=== PATIENT | male | born 1945 | race Caucasian/White ===

== ENCOUNTER 2016-10-01 19:53 | Emergency (ER) | payer OTHER, BC ==
[~2016-10-01] VITALS: Ht 182.9 cm; Wt 108.9 kg
[2016-10-01 20:30] VITALS: BP_SYST 158
[2016-10-01] MEDS ORDERED: BACITRACIN 1 GM OINT TP ONE (20:45)
[2016-10-01] MEDS ORDERED: DIPH-TET-PERTUS Vaccine 0.5 ML VIAL (ADACEL) IM ONE (20:45)
[2016-10-01 21:27] VITALS: BP_SYST 130
== END 2016-10-01 21:27 | disposition home or self-care (01) ==
LOC: SED 19:53
DX: S81.811A Laceration without foreign body, right lower leg, initial encounter (principal); L95.8 Other vasculitis limited to the skin; I10 Essential (primary) hypertension; Z86.73 Personal history of transient ischemic attack (TIA), and cerebral infarction without residual deficits; Z91.041 Radiographic dye allergy status; Z91.048 Other nonmedicinal substance allergy status; W51.XXXA Accidental striking against or bumped into by another person, initial encounter; Y93.89 Activity, other specified; Y92.89 Other specified places as the place of occurrence of the external cause; Y99.8 Other external cause status
CPT/HCPCS: 90715; 99283

== ENCOUNTER 2023-12-03 16:43 | Inpatient (IN) | payer OTHER, BC ==
[~2023-12-03] VITALS: Ht 185.4 cm; Wt 90.7 kg
[2023-12-03 16:47] VITALS: BP_SYST 95; PULSE 115; RESP 22; TEMP 98.3; O2SAT 94
[2023-12-03 17:18] LABS: BASOPHILS # (AUTO) 0.1 K/uL (0.0-0.2); BASOPHILS % (AUTO) 0.6 % (0.0-2.0); EOSINOPHILS % (AUTO) 0.3 % (0.0-4.0); HEMATOCRIT 42.2 % (36-54); HEMOGLOBIN 14.7 g/dL (14.0-18.0); LYMPHOCYTES # (AUTO) 1.4 K/uL (1.0-5.5); LYMPHOCYTES % (AUTO) 13.2 % (20.5-51.5); MEAN CORPUSCULAR HEMOGLOBIN 35 pg (27-31); MEAN CORPUSCULAR HGB CONC 35 % (32-36); MEAN CORPUSCULAR VOLUME 101 fL (79.0-98.0); MONOCYTES # (AUTO) 1.1 K/uL (0.0-1.0); MONOCYTES % (AUTO) 10.2 % (1.7-9.3); NEUTROPHILS # (AUTO) 7.9 K/uL (1.8-7.7); NEUTROPHILS % (AUTO) 75.7 % (40.0-70.0); PLATELET COUNT (AUTO) 231 K/uL (130-430); RED CELL DISTRIBUTION WIDTH 15.8 % (9.0-15.0); WHITE BLOOD COUNT (AUTO) 10.5 K/uL (4.8-10.8)
[2023-12-03 17:39] LABS: INR 2.3 (0.80-1.20)
[2023-12-03 17:54] LABS: ALANINE AMINOTRANSFERASE 14 U/L (12-78); ALBUMIN 2.7 g/dL (3.4-4.8); ANION GAP 5 (5-15); ASPARTATE AMINOTRANSFERASE 20 U/L (10-37); BILIRUBIN,DIRECT 0.5 mg/dL (0.0-0.3); CALCIUM 8.4 mg/dL (8.4-11.0); CARBON DIOXIDE 38 mmol/L (23-29); CHLORIDE 97 mmol/L (98-107); CREATINE KINASE, TOTAL 28 U/L (39-308); CREATININE 1.73 mg/dL (0.55-1.30); GLUCOSE 127 mg/dL (74-106); SODIUM SERUM 140 mmol/L (136-145); TOTAL BILIRUBIN 1.3 mg/dL (0.0-1.0); UREA NITROGEN, BLOOD 52 mg/dL (8-21)
[2023-12-03 18:04] LABS: POTASSIUM 2.1 mmol/L (3.5-5.1)
[2023-12-03] MEDS: dilTIAZem HCL IVP 5 MG/ML VIAL IVP ONE (18:35)
[2023-12-03] MEDS: DILTIAZEM HCL 60 MG TABLET PO ONE (18:36)
[2023-12-03] MEDS ORDERED: VANCOMYCIN HCL 1000 MG/VIAL IV ONE (19:12)
[2023-12-03 19:29] LABS: BILIRUBIN,URINE NEGATIVE (NEGATIVE); CLARITY/URINE CLEAR (CLEAR); COLOR,URINE YELLOW (YELLOW); GLUCOSE,URINE NEGATIVE (NEGATIVE); KETONES,URINE NEGATIVE (NEGATIVE); LEUKOCYTE ESTERASE ,URINE NEGATIVE (NEGATIVE); NITRITE, URINE NEGATIVE (NEGATIVE); PROTEIN URINE NEGATIVE (NEGATIVE); UROBILINOGEN,URINE 0.2 (0.2-1.0)
[2023-12-03] MEDS: VANCOMYCIN HCL 1,000 MG in NS 250 ML IV ONE (19:29)
[2023-12-03 19:41] LABS: BACTERIA,URINE RARE /HPF (None Seen); BLOOD, URINE TRACE (NEGATIVE); MUCUS,URINE 1+ /LPF (None Seen); RBC,URINE 0-3 /HPF (0-3); WBC,URINE 0-3 /HPF (0-3)
[2023-12-03] MEDS: ENOXAPARIN SODIUM 80 MG/0.8 ML SYRINGE SUBCUT ONE (19:47)
[2023-12-03] MEDS ORDERED: WARF3TAB2 PO (19:52)
[2023-12-03] MEDS ORDERED: FOLI-43 PO (19:52)
[2023-12-03] MEDS ORDERED: METO25TA6 PO (19:52)
[2023-12-03] MEDS ORDERED: FAMO-268 PO (19:52)
[2023-12-03] MEDS ORDERED: PHEN100C4 PO (19:52)
[2023-12-03] MEDS ORDERED: FURO40TA5 PO (19:52)
[2023-12-03] MEDS ORDERED: ATOR10TA68 PO (19:52)
[2023-12-03] MEDS ORDERED: CHLO25TA2 PO (19:52)
[2023-12-03] MEDS: POTASSIUM CHLORIDE 20 MEQ/PKT PACKET PO ONE ×2 (20:13→20:38)
[2023-12-03 20:55] VITALS: BP_SYST 89; PULSE 106; RESP 16; TEMP 96.9
[2023-12-03 21:00] VITALS: O2SAT 97
[2023-12-03] MEDS ORDERED: NACL 0.9% 1,000 ML IV SCH (22:00)
[2023-12-03] MEDS: KCL 20 mEq in NS 1000 mL 1,000 ML IV SCH (22:27)
[2023-12-03] MEDS: PHENYTOIN 100 MG CAPSULE PO SCH (22:54)
[2023-12-03] MEDS: WARFARIN SODIUM 3 MG TABLET PO ONE (22:57)
[2023-12-03] MEDS: traMADol HCL HCL 50 MG TABLET (ULTRAM) PO PRN (23:08)
[2023-12-03] MEDS: WARFARIN SODIUM 6 MG TABLET ONE (23:14)
[2023-12-03] MEDS: KCL 20 mEq in NS 1000 mL 1,000 ML IV ONE (23:14)
[2023-12-04] VITALS (7 sets, daily range): BP systolic 91–101; PULSE 91–120; RESP 16–20; TEMP 96.5–98.6; O2SAT 96–99
[2023-12-04 07:01] LABS: BASOPHILS % (AUTO) 0.5 % (0.0-2.0); EOSINOPHILS # (AUTO) 0.1 K/uL (0.0-0.4); EOSINOPHILS % (AUTO) 1.3 % (0.0-4.0); HEMATOCRIT 40.6 % (36-54); HEMOGLOBIN 13.7 g/dL (14.0-18.0); LYMPHOCYTES # (AUTO) 1.3 K/uL (1.0-5.5); LYMPHOCYTES % (AUTO) 16.1 % (20.5-51.5); MEAN CORPUSCULAR HEMOGLOBIN 34 pg (27-31); MEAN CORPUSCULAR HGB CONC 34 % (32-36); MEAN CORPUSCULAR VOLUME 102 fL (79.0-98.0); MONOCYTES # (AUTO) 0.8 K/uL (0.0-1.0); MONOCYTES % (AUTO) 10.4 % (1.7-9.3); NEUTROPHILS # (AUTO) 5.6 K/uL (1.8-7.7); NEUTROPHILS % (AUTO) 71.7 % (40.0-70.0); PLATELET COUNT (AUTO) 206 K/uL (130-430); RED BLOOD CELL COUNT(AUTO) 3.97 MIL/uL (4.2-6.2); RED CELL DISTRIBUTION WIDTH 15.9 % (9.0-15.0); WHITE BLOOD COUNT (AUTO) 7.8 K/uL (4.8-10.8)
[2023-12-04 07:06] LABS: INR 2.4 (0.80-1.20)
[2023-12-04 07:15] LABS: ANION GAP 4 (5-15); CALCIUM 8.5 mg/dL (8.4-11.0); CARBON DIOXIDE 39 mmol/L (23-29); CHLORIDE 98 mmol/L (98-107); CREATININE 1.57 mg/dL (0.55-1.30); GLUCOSE 98 mg/dL (74-106); SODIUM SERUM 141 mmol/L (136-145); UREA NITROGEN, BLOOD 47 mg/dL (8-21)
[2023-12-04 07:48] LABS: POTASSIUM 2.6 mmol/L (3.5-5.1)
[2023-12-04 07:56] LABS: PHENYTOIN (DILANTIN) 6.6 ug/mL (10.0-20.0)
[2023-12-04] MEDS ORDERED: cefTRIAXone 1 GM VIAL IV SCH (09:00)
[2023-12-04] MEDS: FAMOTIDINE 20 MG TABLET PO SCH (09:22)
[2023-12-04] MEDS: FOLIC ACID 1 MG TABLET PO SCH (09:22)
[2023-12-04] MEDS: ATORVASTATIN 10 MG TABLET PO SCH (09:22)
[2023-12-04] MEDS: METOPROLOL TARTRATE 25 MG TABLET PO SCH (09:22)
[2023-12-04] MEDS: POTASSIUM CHLORIDE 20 MEQ TABLET.ER PO ONE ×2 (09:25→12:27)
[2023-12-04] MEDS: AZITHROMYCIN 500 MG in NS 250 ML IV SCH (10:50)
[2023-12-04] MEDS: CEFTRIAXONE SOD 1 GM/ D5W 50 ML IV SCH (13:25)
[2023-12-04] MEDS: WARFARIN SODIUM 1 MG TABLET PO SCH (18:00)
[2023-12-04] MEDS: ANTIFUNGAL CLEAR OINTMENT TP SCH (20:28)
[2023-12-04] MEDS: PHENYTOIN 100 MG CAPSULE PO ONE (20:28)
[2023-12-05] VITALS (7 sets, daily range): BP systolic 92–123; PULSE 112–128; RESP 16–20; TEMP 97.2–98.3; O2SAT 95–98
[2023-12-05 07:10] LABS: BASOPHILS % (AUTO) 0.4 % (0.0-2.0); EOSINOPHILS # (AUTO) 0.2 K/uL (0.0-0.4); EOSINOPHILS % (AUTO) 1.7 % (0.0-4.0); HEMATOCRIT 39.9 % (36-54); HEMOGLOBIN 13.4 g/dL (14.0-18.0); LYMPHOCYTES # (AUTO) 1.3 K/uL (1.0-5.5); LYMPHOCYTES % (AUTO) 14.2 % (20.5-51.5); MEAN CORPUSCULAR HEMOGLOBIN 34 pg (27-31); MEAN CORPUSCULAR HGB CONC 34 % (32-36); MEAN CORPUSCULAR VOLUME 103 fL (79.0-98.0); MONOCYTES # (AUTO) 0.8 K/uL (0.0-1.0); MONOCYTES % (AUTO) 8.4 % (1.7-9.3); NEUTROPHILS # (AUTO) 7.1 K/uL (1.8-7.7); NEUTROPHILS % (AUTO) 75.3 % (40.0-70.0); PLATELET COUNT (AUTO) 203 K/uL (130-430); RED BLOOD CELL COUNT(AUTO) 3.88 MIL/uL (4.2-6.2); RED CELL DISTRIBUTION WIDTH 15.9 % (9.0-15.0); WHITE BLOOD COUNT (AUTO) 9.4 K/uL (4.8-10.8)
[2023-12-05 07:32] LABS: INR 2.6 (0.80-1.20); PROTHROMBIN TIME 25.2 SECS (9.5-12.5)
[2023-12-05 07:49] LABS: ANION GAP 4 (5-15); CALCIUM 8.7 mg/dL (8.4-11.0); CARBON DIOXIDE 35 mmol/L (23-29); CHLORIDE 103 mmol/L (98-107); CREATININE 1.43 mg/dL (0.55-1.30); GLUCOSE 107 mg/dL (74-106); SODIUM SERUM 142 mmol/L (136-145); UREA NITROGEN, BLOOD 38 mg/dL (8-21)
[2023-12-05 08:05] LABS: PHENYTOIN (DILANTIN) 7.4 ug/mL (10.0-20.0)
[2023-12-05] MEDS: POTASSIUM CHLORIDE 20 MEQ TABLET.ER PO ONE (09:27)
[2023-12-05] MEDS: CYCLOBENZAPRINE HCL 10 MG TABLET (FLEXERIL) PO PRN (13:48)
[2023-12-05] MEDS: WARFARIN SODIUM 1 MG TABLET PO SCH (18:04)
[2023-12-05] MEDS: PHENYTOIN 100 MG CAPSULE PO SCH (20:53)
[2023-12-06] VITALS (8 sets, daily range): BP systolic 91–110; PULSE 94–134; RESP 18; TEMP 97.4–98.8; O2SAT 95–99
[2023-12-06 05:52] LABS: ALANINE AMINOTRANSFERASE 14 U/L (12-78); ALBUMIN 2.3 g/dL (3.4-4.8); ANION GAP 2 (5-15); ASPARTATE AMINOTRANSFERASE 24 U/L (10-37); CALCIUM 8.7 mg/dL (8.4-11.0); CARBON DIOXIDE 36 mmol/L (23-29); CHLORIDE 104 mmol/L (98-107); CREATININE 1.21 mg/dL (0.55-1.30); GLUCOSE 109 mg/dL (74-106); POTASSIUM 3.4 mmol/L (3.5-5.1); SODIUM SERUM 142 mmol/L (136-145); THYROID STIMULATING HORMONE 1.48 uIu/mL (0.36-3.74); TOTAL PROTEIN, SERUM 6.6 g/dL (6.4-8.3); UREA NITROGEN, BLOOD 32 mg/dL (8-21)
[2023-12-06 06:55] LABS: INR 2.4 (0.80-1.20); PROTHROMBIN TIME 23.8 SECS (9.5-12.5)
[2023-12-06] MEDS: FUROSEMIDE 40 MG TABLET PO SCH (09:21)
[2023-12-06] MEDS ORDERED: MILK OF MAGNESIA 30 ML UDC PO PRN (14:00)
[2023-12-06] MEDS: levalbuterol HCL 0.63 MG/3 ML VIAL.NEB INH SCH (15:05)
[2023-12-06 20:02] LABS: CHOLESTEROL 126 mg/dL (<200); TRIGLYCERIDES 52 mg/dL (30-150)
[2023-12-06 20:03] LABS: HDL CHOLESTEROL 67 mg/dL (>45)
[2023-12-06] MEDS: DOCUSATE SODIUM 100 MG CAPSULE PO SCH (21:00)
[2023-12-07] VITALS (11 sets, daily range): BP systolic 92–101; PULSE 111–132; RESP 16–22; TEMP 96.7–97.9; O2SAT 93–97
[2023-12-07 06:30] LABS: BASOPHILS # (AUTO) 0.1 K/uL (0.0-0.2); BASOPHILS % (AUTO) 0.6 % (0.0-2.0); EOSINOPHILS # (AUTO) 0.3 K/uL (0.0-0.4); EOSINOPHILS % (AUTO) 3.4 % (0.0-4.0); HEMATOCRIT 38.2 % (36-54); MEAN CORPUSCULAR HEMOGLOBIN 35 pg (27-31); MEAN CORPUSCULAR HGB CONC 34 % (32-36); MEAN CORPUSCULAR VOLUME 103 fL (79.0-98.0); MONOCYTES # (AUTO) 0.8 K/uL (0.0-1.0); MONOCYTES % (AUTO) 10.1 % (1.7-9.3); NEUTROPHILS # (AUTO) 6.1 K/uL (1.8-7.7); NEUTROPHILS % (AUTO) 73.9 % (40.0-70.0); PLATELET COUNT (AUTO) 209 K/uL (130-430); RED BLOOD CELL COUNT(AUTO) 3.71 MIL/uL (4.2-6.2); WHITE BLOOD COUNT (AUTO) 8.3 K/uL (4.8-10.8)
[2023-12-07 06:37] LABS: INR 3.3 (0.80-1.20)
[2023-12-07 07:01] LABS: ALANINE AMINOTRANSFERASE 22 U/L (12-78); ALBUMIN 2.2 g/dL (3.4-4.8); ANION GAP 3 (5-15); ASPARTATE AMINOTRANSFERASE 34 U/L (10-37); CALCIUM 8.6 mg/dL (8.4-11.0); CARBON DIOXIDE 35 mmol/L (23-29); CHLORIDE 104 mmol/L (98-107); CREATININE 1.07 mg/dL (0.55-1.30); GLUCOSE 95 mg/dL (74-106); POTASSIUM 3.3 mmol/L (3.5-5.1); SODIUM SERUM 142 mmol/L (136-145); TOTAL BILIRUBIN 1.1 mg/dL (0.0-1.0); TOTAL PROTEIN, SERUM 6.3 g/dL (6.4-8.3); UREA NITROGEN, BLOOD 26 mg/dL (8-21)
[2023-12-07] MEDS: ACETYLCYSTEINE 20% 4 ML VIAL (RT) INH SCH (13:56)
[2023-12-07] MEDS: levalbuterol HCL 0.63 MG/3 ML VIAL.NEB INH SCH (13:57)
[2023-12-07] MEDS: POTASSIUM CHLORIDE 20 MEQ/PKT PACKET PO ONE (14:34)
[2023-12-07] MEDS: METOPROLOL SUCCINATE 50 MG TAB.SR.24H (TOPROL XL) PO ONE (14:34)
[2023-12-07] MEDS: METOPROLOL TARTRATE 50 MG TABLET PO SCH (22:20)
[2023-12-08 00:11] VITALS: BP_SYST 103; PULSE 114; RESP 20; TEMP 97.7; O2SAT 96
[2023-12-08 04:33] LABS: BASOPHILS % (AUTO) 0.5 % (0.0-2.0); EOSINOPHILS # (AUTO) 0.3 K/uL (0.0-0.4); EOSINOPHILS % (AUTO) 3.9 % (0.0-4.0); HEMATOCRIT 37.4 % (36-54); HEMOGLOBIN 12.5 g/dL (14.0-18.0); LYMPHOCYTES # (AUTO) 1.1 K/uL (1.0-5.5); LYMPHOCYTES % (AUTO) 13.5 % (20.5-51.5); MEAN CORPUSCULAR HEMOGLOBIN 35 pg (27-31); MEAN CORPUSCULAR HGB CONC 34 % (32-36); MEAN CORPUSCULAR VOLUME 104 fL (79.0-98.0); MONOCYTES # (AUTO) 0.8 K/uL (0.0-1.0); MONOCYTES % (AUTO) 9.8 % (1.7-9.3); NEUTROPHILS # (AUTO) 5.7 K/uL (1.8-7.7); NEUTROPHILS % (AUTO) 72.3 % (40.0-70.0); PLATELET COUNT (AUTO) 228 K/uL (130-430); RED BLOOD CELL COUNT(AUTO) 3.61 MIL/uL (4.2-6.2); WHITE BLOOD COUNT (AUTO) 7.9 K/uL (4.8-10.8)
[2023-12-08 04:56] LABS: INR 2.1 (0.80-1.20); PROTHROMBIN TIME 20.7 SECS (9.5-12.5)
[2023-12-08 05:03] LABS: ALANINE AMINOTRANSFERASE 33 U/L (12-78); ALBUMIN 2.1 g/dL (3.4-4.8); ANION GAP 2 (5-15); ASPARTATE AMINOTRANSFERASE 41 U/L (10-37); CALCIUM 8.5 mg/dL (8.4-11.0); CARBON DIOXIDE 37 mmol/L (23-29); CHLORIDE 103 mmol/L (98-107); CREATININE 1.17 mg/dL (0.55-1.30); GLUCOSE 103 mg/dL (74-106); PHENYTOIN (DILANTIN) 2.5 ug/mL (10.0-20.0); POTASSIUM 4.1 mmol/L (3.5-5.1); SODIUM SERUM 142 mmol/L (136-145); TOTAL BILIRUBIN 0.7 mg/dL (0.0-1.0); TOTAL PROTEIN, SERUM 6.3 g/dL (6.4-8.3); UREA NITROGEN, BLOOD 28 mg/dL (8-21)
[2023-12-08] MEDS: KCL 20 mEq in NS 1000 mL 1,000 ML IV ONE (06:13)
[2023-12-08 08:00] VITALS: BP_SYST 110; PULSE 125; O2SAT 95
[2023-12-08 12:00] VITALS: BP_SYST 87; PULSE 113
[2023-12-08 16:00] VITALS: BP_SYST 87; PULSE 110
[2023-12-08 20:00] VITALS: BP_SYST 108; PULSE 111; RESP 16; TEMP 97.8; O2SAT 97; O2SAT 98
[2023-12-08 20:31] VITALS: O2SAT 96
[2023-12-09] VITALS (8 sets, daily range): BP systolic 95–115; PULSE 71–129; RESP 14–18; TEMP 97.8–98.5; O2SAT 95–99
[2023-12-09 04:37] LABS: BASOPHILS % (AUTO) 0.6 % (0.0-2.0); EOSINOPHILS # (AUTO) 0.3 K/uL (0.0-0.4); EOSINOPHILS % (AUTO) 4.3 % (0.0-4.0); HEMATOCRIT 37.1 % (36-54); HEMOGLOBIN 12.5 g/dL (14.0-18.0); LYMPHOCYTES # (AUTO) 1.2 K/uL (1.0-5.5); LYMPHOCYTES % (AUTO) 15.6 % (20.5-51.5); MEAN CORPUSCULAR HEMOGLOBIN 35 pg (27-31); MEAN CORPUSCULAR HGB CONC 34 % (32-36); MEAN CORPUSCULAR VOLUME 104 fL (79.0-98.0); MONOCYTES # (AUTO) 0.8 K/uL (0.0-1.0); MONOCYTES % (AUTO) 10.3 % (1.7-9.3); NEUTROPHILS # (AUTO) 5.4 K/uL (1.8-7.7); NEUTROPHILS % (AUTO) 69.2 % (40.0-70.0); PLATELET COUNT (AUTO) 250 K/uL (130-430); RED BLOOD CELL COUNT(AUTO) 3.58 MIL/uL (4.2-6.2); RED CELL DISTRIBUTION WIDTH 15.8 % (9.0-15.0); WHITE BLOOD COUNT (AUTO) 7.8 K/uL (4.8-10.8)
[2023-12-09 05:37] LABS: ANION GAP 3 (5-15); CALCIUM 8.6 mg/dL (8.4-11.0); CARBON DIOXIDE 35 mmol/L (23-29); CHLORIDE 102 mmol/L (98-107); CREATININE 1.04 mg/dL (0.55-1.30); GLUCOSE 90 mg/dL (74-106); POTASSIUM 3.9 mmol/L (3.5-5.1); SODIUM SERUM 140 mmol/L (136-145); UREA NITROGEN, BLOOD 31 mg/dL (8-21)
[2023-12-09 08:10] LABS: INR 1.4 (0.80-1.20); PROTHROMBIN TIME 14.1 SECS (9.5-12.5)
[2023-12-09 08:24] LABS: PHENYTOIN (DILANTIN) 1.3 ug/mL (10.0-20.0)
[2023-12-09] MEDS: PHENYTOIN SODIUM INJ 500 MG in NS 50 ML IV ONE (13:54)
[2023-12-09] MEDS: WARFARIN SODIUM 6 MG TABLET PO SCH (17:55)
[2023-12-10] VITALS (9 sets, daily range): BP systolic 99–106; PULSE 72–118; RESP 18–20; TEMP 98.2–98.6; O2SAT 96–98
[2023-12-10 04:52] LABS: BASOPHILS # (AUTO) 0.1 K/uL (0.0-0.2); BASOPHILS % (AUTO) 0.8 % (0.0-2.0); EOSINOPHILS # (AUTO) 0.3 K/uL (0.0-0.4); EOSINOPHILS % (AUTO) 3.9 % (0.0-4.0); HEMATOCRIT 36.8 % (36-54); HEMOGLOBIN 12.4 g/dL (14.0-18.0); LYMPHOCYTES # (AUTO) 1.3 K/uL (1.0-5.5); LYMPHOCYTES % (AUTO) 16.1 % (20.5-51.5); MEAN CORPUSCULAR HEMOGLOBIN 35 pg (27-31); MEAN CORPUSCULAR HGB CONC 34 % (32-36); MEAN CORPUSCULAR VOLUME 104 fL (79.0-98.0); MONOCYTES # (AUTO) 0.8 K/uL (0.0-1.0); MONOCYTES % (AUTO) 9.9 % (1.7-9.3); NEUTROPHILS # (AUTO) 5.5 K/uL (1.8-7.7); NEUTROPHILS % (AUTO) 69.3 % (40.0-70.0); PLATELET COUNT (AUTO) 262 K/uL (130-430); RED BLOOD CELL COUNT(AUTO) 3.56 MIL/uL (4.2-6.2); RED CELL DISTRIBUTION WIDTH 16.3 % (9.0-15.0); WHITE BLOOD COUNT (AUTO) 7.9 K/uL (4.8-10.8)
[2023-12-10 05:07] LABS: INR 1.3 (0.80-1.20); PROTHROMBIN TIME 12.9 SECS (9.5-12.5)
[2023-12-10 05:58] LABS: ANION GAP 3 (5-15); CALCIUM 8.3 mg/dL (8.4-11.0); CARBON DIOXIDE 34 mmol/L (23-29); CHLORIDE 103 mmol/L (98-107); CREATININE 1.18 mg/dL (0.55-1.30); GLUCOSE 108 mg/dL (74-106); SODIUM SERUM 140 mmol/L (136-145); UREA NITROGEN, BLOOD 34 mg/dL (8-21)
[2023-12-10 10:01] LABS: INR 1.3 (0.80-1.20); PROTHROMBIN TIME 13.3 SECS (9.5-12.5)
[2023-12-10 10:55] LABS: PHENYTOIN (DILANTIN) 3.9 ug/mL (10.0-20.0)
== END 2023-12-10 21:00 | DRG 562 ==
LOC: SED 16:43 → SMU 20:22 → STU 21:56
PROVIDERS: ADMIT Family Medicine; ATTEND Family Medicine
DX: S82.891A Other fracture of right lower leg, initial encounter for closed fracture (principal); J18.9 Pneumonia, unspecified organism; I48.20 Chronic atrial fibrillation, unspecified; N17.9 Acute kidney failure, unspecified; I50.9 Heart failure, unspecified; I48.0 Paroxysmal atrial fibrillation; I11.0 Hypertensive heart disease with heart failure; G40.909 Epilepsy, unspecified, not intractable, without status epilepticus; E87.6 Hypokalemia; J45.909 Unspecified asthma, uncomplicated; M17.0 Bilateral primary osteoarthritis of knee; N28.89 Other specified disorders of kidney and ureter; E86.0 Dehydration; T50.2X5A Adverse effect of carbonic-anhydrase inhibitors, benzothiadiazides and other diuretics, initial encounter; W01.0XXA Fall on same level from slipping, tripping and stumbling without subsequent striking against object, initial encounter; Y92.89 Other specified places as the place of occurrence of the external cause; Z95.2 Presence of prosthetic heart valve; Z86.73 Personal history of transient ischemic attack (TIA), and cerebral infarction without residual deficits; Z86.16 Personal history of COVID-19; Z79.01 Long term (current) use of anticoagulants; Z87.01 Personal history of pneumonia (recurrent); Z79.899 Other long term (current) drug therapy; Z88.8 Allergy status to other drugs, medicaments and biological substances; Y93.89 Activity, other specified; Y99.8 Other external cause status
CPT/HCPCS: 36415; 71045; 71250-TC; 76770; 80048; 80053; 80061; 80076; 80185; 81000; 81001; 81015; 82550; 83605; 83735; 83880; 84439; 84443; 84484; 85025; 85610; 85730; 87040; 93005; 93306; 94070; 94640; 94664; 94760; 96365; 99285; G0378; J0456; J0696; J1165; J1650; J3370; J3480; J3490; J7050; J7060; J7608; J7614

== ENCOUNTER 2024-01-22 08:23 | Outpatient (CLI) | payer OTHER, BC ==
[~2024-01-22 08:23] MED LIST: ATOR10TA68 PO; FAMO-268 PO; FOLI-43 PO; WARF3TAB2 PO
== END 2024-01-22 19:05 | disposition home or self-care (01) ==
LOC: SCT 08:23
PROVIDERS: ATTEND Urology
DX: N28.1 Cyst of kidney, acquired (principal); N28.89 Other specified disorders of kidney and ureter; N32.89 Other specified disorders of bladder; J98.11 Atelectasis; J90 Pleural effusion, not elsewhere classified; R60.9 Edema, unspecified; M47.816 Spondylosis without myelopathy or radiculopathy, lumbar region; Z95.820 Peripheral vascular angioplasty status with implants and grafts; Z90.49 Acquired absence of other specified parts of digestive tract